=== PATIENT | male | born 1985 | race Two or more races ===

== ENCOUNTER 2017-03-12 09:27 | Emergency (ER) | payer OTHER ==
[~2017-03-12] VITALS: Ht 182.9 cm; Wt 72.6 kg
[2017-03-12] MEDS ORDERED: LORAZEPAM 1 MG TABLET ONE (09:36)
--- NOTE | 2017-03-12 09:40 | NUR ---
31 YO MALE BI [employer] FOR MEDICAL CLEARANCE FOR POSSIBLE ALCOHOL WITHDRAWAL. PT IS ALERT X 3, DENIES ANY MEDICAL COMPLAINTS. PT AMBULATED TO ER BED WITH STEADY GAIT. SKIN WARM AND DRY, RR EVEN AND UNLABORED. AWAITING ORDERS FROM PROVIDER
--- NOTE | 2017-03-12 09:45 | NUR ---
MEDICATED PT ORDERED
--- NOTE | 2017-03-12 09:49 | NUR ---
20G RIGHT HAND IV STARTED, BLOOD SAMPLE OBTAINED AND SENT TO LAB
[2017-03-12 09:50] LABS: BASOPHILS # (AUTO) 0.1 /CMM (0.0-0.2); BASOPHILS % (AUTO) 1.1 % (0.0-2.0); EOSINOPHILS # (AUTO) 0.1 /CMM (0.0-0.7); HEMATOCRIT 40 % (39-51); HEMOGLOBIN 13.3 g/dL (13.5-17.5); LYMPHOCYTES # (AUTO) 0.5 /CMM (0.8-4.8); LYMPHOCYTES % (AUTO) 10.4 % (20.0-44.0); MEAN CORPUSCULAR HEMOGLOBIN 36 PG (26.0-33.0); MEAN CORPUSCULAR HGB CONC 33 g/dl (31.0-36.0); MEAN CORPUSCULAR VOLUME 108 fL (80-96); MONOCYTES # (AUTO) 0.8 /CMM (0.1-1.30); MONOCYTES % (AUTO) 15.3 % (2.0-12.0); NEUTROPHILS # (AUTO) 3.7 /CMM (1.8-8.9); NEUTROPHILS % (AUTO) 72.2 % (43.0-81.0); PLATELET COUNT (AUTO) 159 /CMM (150-450); RDW COEFFICIENT OF VARIATION 13.9 (11.5-15.0); RED BLOOD CELL COUNT(AUTO) 3.75 MIL/uL (4.5-6.0); WHITE BLOOD COUNT (AUTO) 5.2 K/uL (4.3-11.0)
[2017-03-12 10:00] VITALS: BP 145/96
[2017-03-12] MEDS ORDERED: LORAZEPAM 1 MG TABLET PO ONE (10:00)
[2017-03-12 10:01] LABS: CARBON DIOXIDE 25 mmol/L (21-32); CHLORIDE 100 mmol/L (98-107); GLUCOSE 68 mg/dL (74-106); POTASSIUM 4.2 mmol/L (3.5-5.1); SODIUM SERUM 138 mmol/L (136-145); UREA NITROGEN, BLOOD 21 mg/dL (7-18)
--- NOTE | 2017-03-12 10:01 | NUR ---
Patient discharged to home in stable condition. Written and verbal after care instructions given. Patient verbalizes understanding of instruction.
[2017-03-12 10:05] LABS: INR 0.99 (0.87-1.13); PROTHROMBIN TIME 10.3 SECS (9.5-12.7)
[2017-03-12 10:07] LABS: ALBUMIN 4.9 g/dL (3.4-5.0); BILIRUBIN,DIRECT 0.5 mg/dL (0.0-0.2); BILIRUBIN,TOTAL 2.3 mg/dL (0.2-1.0); TOTAL PROTEIN, SERUM 8.2 g/dL (6.4-8.2)
[2017-03-12 10:09] LABS: TROPONIN I < 0.017 ng/mL (0.00-0.056)
[2017-03-12 11:10] LABS: NEUTROPHILS % (MANUAL) 73 (42-76)
[2017-03-12 11:11] LABS: LYMPHOCYTES % (MANUAL) 12 % (16-48); MONOCYTES % (MANUAL) 15 % (0-11.0)
== END 2017-03-12 10:03 ==
LOC: ER 09:29
DX: F10.239 Alcohol dependence with withdrawal, unspecified (principal)
CPT/HCPCS: 36415; 71010-TC; 80048-TC; 80076-TC; 84484-TC; 85025-TC; 85730-TC; A4606; Z7610

== ENCOUNTER 2018-12-26 08:58 | Emergency (ER) | payer OTHER ==
[~2018-12-26] VITALS: Ht 177.8 cm; Wt 90.7 kg
--- NOTE | 2018-12-26 09:07 | NUR ---
BIB [facility], RFA PAIN AND SWELLIG S/P FALL 3 DAYS AGO. TO ER BED 1, HOOKED TO MONITOR, PROVIDED W WARM BLANKET, DR RUIZ AT BEDSIDE
[2018-12-26] MEDS ORDERED: ACETAMINOPHEN ES 500 MG TABLET ONE (09:29)
[2018-12-26] MEDS ORDERED: IBUPROFEN 600 MG TABLET PO ONE ×2 (09:29→09:30)
[2018-12-26] MEDS ORDERED: ACETAMINOPHEN ES 500 MG TABLET PO ONE (09:30)
[2018-12-26 10:54] VITALS: BP 112/65
--- NOTE | 2018-12-26 10:54 | NUR ---
Patient discharged to home in stable condition. Written and verbal after care instructions given. Patient verbalizes understanding of instruction.
== END 2018-12-26 10:55 | disposition home or self-care (01) ==
LOC: ER 09:00
DX: S52.571A Other intraarticular fracture of lower end of right radius, initial encounter for closed fracture (principal); W19.XXXA Unspecified fall, initial encounter; Y93.89 Activity, other specified; Y92.89 Other specified places as the place of occurrence of the external cause; Y99.8 Other external cause status
CPT/HCPCS: 73110; 73130-TC